=== PATIENT | male | born 1965 | race Caucasian/White ===

== ENCOUNTER 2017-07-29 09:01 | Emergency (ER) | payer OTHER ==
[~2017-07-29] VITALS: Ht 190.5 cm; Wt 86.2 kg
[2017-07-29 09:05] VITALS: BP_SYST 132
[2017-07-29] MEDS ORDERED: OXYCODONE/ACETAMINOPHEN 5-325 TABLET PO ONE (09:45)
[2017-07-29 10:28] VITALS: BP_SYST 128
== END 2017-07-29 10:28 | disposition home or self-care (01) ==
LOC: SED 09:01
DX: Z76.0 Encounter for issue of repeat prescription (principal); Z88.5 Allergy status to narcotic agent; Z88.8 Allergy status to other drugs, medicaments and biological substances
CPT/HCPCS: 99283

== ENCOUNTER 2017-09-20 10:15 | Emergency (ER) | payer OTHER ==
[~2017-09-20] VITALS: Ht 190.5 cm; Wt 81.6 kg
[2017-09-20 10:24] VITALS: BP_SYST 106
[2017-09-20 10:51] LABS: BASOPHILS # (AUTO) 0.1 K/uL (0.0-0.2); BASOPHILS % (AUTO) 1.3 % (0.0-2.0); EOSINOPHILS # (AUTO) 0.3 K/uL (0.0-0.4); EOSINOPHILS % (AUTO) 4.5 % (0.0-4.0); HEMATOCRIT 44.9 % (36-54); HEMOGLOBIN 14.9 g/dL (14.0-18.0); LYMPHOCYTES # (AUTO) 2.4 K/uL (1.0-5.5); LYMPHOCYTES % (AUTO) 36.1 % (20.5-51.5); MEAN CORPUSCULAR HEMOGLOBIN 29 pg (27-31); MEAN CORPUSCULAR HGB CONC 33 % (32-36); MEAN CORPUSCULAR VOLUME 87 fL (79.0-98.0); MONOCYTES # (AUTO) 0.5 K/uL (0.0-1.0); MONOCYTES % (AUTO) 7.6 % (1.7-9.3); NEUTROPHILS # (AUTO) 3.5 K/uL (1.8-7.7); NEUTROPHILS % (AUTO) 50.5 % (40.0-70.0); PLATELET COUNT (AUTO) 239 K/uL (130-430); RED BLOOD CELL COUNT(AUTO) 5.17 MIL/uL (4.2-6.2); RED CELL DISTRIBUTION WIDTH 13.8 % (9.0-15.0); WHITE BLOOD COUNT (AUTO) 6.8 K/uL (4.8-10.8)
[2017-09-20 10:53] LABS: CALCIUM 9.3 mg/dL (8.4-11.0); CREATININE 1.03 mg/dL (0.55-1.30); POTASSIUM 3.9 mmol/L (3.5-5.1)
[2017-09-20 10:58] LABS: ALBUMIN 4.2 g/dL (3.4-4.8); TOTAL BILIRUBIN 0.3 mg/dL (0.0-1.0)
[2017-09-20] MEDS ORDERED: IBUPROFEN 800 MG TABLET PO ONE (11:00)
[2017-09-20] MEDS ORDERED: HYDROcodone/ACETAMIN 10-325 MG TAB PO ONE (11:00)
[2017-09-20 11:01] LABS: PROTHROMBIN TIME 9.9 SECS (9.5-12.5)
[2017-09-20 12:21] VITALS: BP_SYST 142
== END 2017-09-20 12:21 | disposition home or self-care (01) ==
LOC: SED 10:15
DX: R20.0 Anesthesia of skin (principal); M54.30 Sciatica, unspecified side; Z88.5 Allergy status to narcotic agent; Z95.1 Presence of aortocoronary bypass graft; Z88.8 Allergy status to other drugs, medicaments and biological substances; Z86.79 Personal history of other diseases of the circulatory system
CPT/HCPCS: 36415; 70450-TC; 71045; 80053; 82550-TC; 83880; 84484; 85025; 85610-TC; 85730-TC; 93005; 99285

== ENCOUNTER 2017-10-04 12:54 | Inpatient (IN) | payer MEDICAID ==
[~2017-10-04] VITALS: Ht 190.5 cm; Wt 86.2 kg
[2017-10-04 13:02] VITALS: BP_SYST 137
[2017-10-04] MEDS ORDERED: NACL 0.9% 1,000 ML IV ONE (13:22)
[2017-10-04] MEDS ORDERED: ASPIRIN 81 MG TAB.CHEW PO ONE (13:30)
[2017-10-04] MEDS ORDERED: NITROGLYCERIN 1 INCH (GM) OINT. TP ONE (13:45)
[2017-10-04] MEDS ORDERED: METOPROLOL TARTRATE 25 MG TABLET PO ONE ×2 (13:45→18:30)
[2017-10-04] MEDS ORDERED: MORPHINE 4 MG/ML INJ. SYRINGE IVP ONE ×2 (13:45→14:30)
[2017-10-04 13:56] LABS: BASOPHILS # (AUTO) 0.1 K/uL (0.0-0.2); BASOPHILS % (AUTO) 0.9 % (0.0-2.0); EOSINOPHILS # (AUTO) 0.3 K/uL (0.0-0.4); EOSINOPHILS % (AUTO) 3.7 % (0.0-4.0); HEMATOCRIT 39.8 % (36-54); HEMOGLOBIN 13.7 g/dL (14.0-18.0); LYMPHOCYTES % (AUTO) 28.8 % (20.5-51.5); MEAN CORPUSCULAR HEMOGLOBIN 30 pg (27-31); MEAN CORPUSCULAR HGB CONC 34 % (32-36); MEAN CORPUSCULAR VOLUME 87 fL (79.0-98.0); MONOCYTES # (AUTO) 0.6 K/uL (0.0-1.0); MONOCYTES % (AUTO) 8.8 % (1.7-9.3); NEUTROPHILS % (AUTO) 57.8 % (40.0-70.0); PLATELET COUNT (AUTO) 238 K/uL (130-430); RED CELL DISTRIBUTION WIDTH 14.2 % (9.0-15.0)
[2017-10-04 14:20] LABS: ANION GAP 8 (5-15); CALCIUM 9.3 mg/dL (8.4-11.0); CHLORIDE 105 mmol/L (98-107); CREATININE 0.96 mg/dL (0.55-1.30); GLUCOSE 94 mg/dL (70-99); POTASSIUM 3.5 mmol/L (3.5-5.1); SODIUM SERUM 141 mmol/L (136-145); UREA NITROGEN, BLOOD 15 mg/dL (8-21)
[2017-10-04 14:23] LABS: GFR AFRICAN AMERICAN 106 mL/min (>90)
[2017-10-04 14:25] LABS: INR 0.9 (0.80-1.20); PROTHROMBIN TIME 9.5 SECS (9.5-12.5)
[2017-10-04 14:29] LABS: ALANINE AMINOTRANSFERASE 58 U/L (12-78); ALBUMIN 3.9 g/dL (3.4-4.8); ASPARTATE AMINOTRANSFERASE 36 U/L (10-37); TOTAL BILIRUBIN 0.4 mg/dL (0.0-1.0)
[2017-10-04] MEDS ORDERED: CARV3.1246 PO (14:41)
[2017-10-04] MEDS ORDERED: GABA-533 PO (14:41)
[2017-10-04] MEDS ORDERED: ASPI-1063 PO (14:43)
[2017-10-04] MEDS ORDERED: RANI-281 PO (14:43)
[2017-10-04] MEDS ORDERED: LORazepam 2 MG/ML VIAL (FOR ER USE) IVP ONE (15:00)
[2017-10-04 15:40] VITALS: BP_SYST 111
[2017-10-04] MEDS ORDERED: MORPHINE 4 MG/ML INJ. SYRINGE IVP PRN (17:45)
[2017-10-04] MEDS ORDERED: *LOVENOX 1MG/KG Q12H/PHARMACY XX ONE (17:45)
[2017-10-04] MEDS ORDERED: ACETAMINOPHEN 325 MG TABLET PO PRN (17:45)
[2017-10-04] MEDS ORDERED: ASPIRIN 325 MG TABLET PO ONE (18:22)
[2017-10-04] MEDS: MORPHINE 4 MG/ML INJ. SYRINGE IVP PRN ×2 (18:26→23:38)
[2017-10-04] MEDS ORDERED: ENOXAPARIN SODIUM 80 MG/0.8 ML SYRINGE SUBCUT ONE (18:30)
[2017-10-04 19:45] VITALS: BP_SYST 118
[2017-10-04] MEDS: GABAPENTIN 400 MG CAPSULE PO SCH (21:35)
[2017-10-04] MEDS: ALPRAZolam 0.25 MG TABLET PO PRN (22:54)
[2017-10-05] VITALS: BP_SYST 113
[2017-10-05] MEDS: MORPHINE 4 MG/ML INJ. SYRINGE IVP PRN ×3 (05:44→14:01)
[2017-10-05 08:23] VITALS: BP_SYST 113
[2017-10-05] MEDS: GABAPENTIN 400 MG CAPSULE PO SCH ×2 (08:47→14:01)
[2017-10-05] MEDS ORDERED: METOPROLOL TARTRATE 25 MG TABLET PO SCH (09:00)
[2017-10-05] MEDS ORDERED: ASPIRIN 325 MG TABLET PO SCH (09:00)
[2017-10-05] MEDS ORDERED: FAMOTIDINE 20 MG TABLET PO SCH (09:00)
[2017-10-05] MEDS ORDERED: NON-FORMULARY MEDICATION (Ranitidine Hcl (Zantac) 150 MG) PO SCH (09:00)
[2017-10-05] MEDS ORDERED: ENOXAPARIN SODIUM 80 MG/0.8 ML SYRINGE SUBCUT SCH (09:00)
[2017-10-05] MEDS: ALPRAZolam 0.25 MG TABLET PO PRN (10:05)
[2017-10-05 12:30] VITALS: BP_SYST 125
[2017-10-05] MEDS ORDERED: NICOTINE 14 MG/24 HR PATCH.TD24 TD ONE (15:15)
[2017-10-05] MEDS ORDERED: ATORVASTATIN 20 MG TABLET PO ONE (16:00)
[2017-10-05 16:04] VITALS: BP_SYST 104
[2017-10-05 16:22] VITALS: BP_SYST 116
[2017-10-06] MEDS ORDERED: ATORVASTATIN 20 MG TABLET PO SCH (09:00)
[2017-10-06] MEDS ORDERED: NICOTINE 14 MG/24 HR PATCH.TD24 TD SCH (09:00)
== END 2017-10-05 16:40 | disposition home or self-care (01) | DRG 198 ==
LOC: SED 12:54 → STU 15:07
PROVIDERS: ADMIT Internal Medicine Hospice and Palliative Medicine; ATTEND Internal Medicine Hospice and Palliative Medicine
DX: R07.89 Other chest pain (principal); I25.119 Atherosclerotic heart disease of native coronary artery with unspecified angina pectoris; J44.9 Chronic obstructive pulmonary disease, unspecified; F17.210 Nicotine dependence, cigarettes, uncomplicated; Z95.1 Presence of aortocoronary bypass graft; Z90.49 Acquired absence of other specified parts of digestive tract
CPT/HCPCS: 36415; 71045; 80053; 84484; 85025; 85379; 85610-TC; 85730-TC; 93005; 96361; 96374; 96375; 96376; 99285; J1650; J2060; J2270